=== PATIENT | male | born 1985 | race Caucasian/White ===

== ENCOUNTER 2020-01-15 07:16 | Emergency (ER) | payer OTHER ==
[~2020-01-15] VITALS: Ht 185.4 cm; Wt 79.4 kg
[2020-01-15] MEDS ORDERED: SUBOXONE 4 MG-1 EACH (07:27)
[2020-01-15 07:36] LABS: ABSOLUTE BASOPHILS 0.1 thou/uL (0.0-0.2); ABSOLUTE EOSINOPHILS 0.2 thou/uL (0.0-0.7); ABSOLUTE LYMPHOCYTES 5.5 thou/uL (0.8-5.3); ABSOLUTE NEUTROPHILS 6.6 thou/uL (1.6-8.1); BASOPHILS 0.7 %; EOSINOPHILS 1.8 %; HEMATOCRIT 46.7 % (42.0-52.0); HEMOGLOBIN 15.9 gm/dL (14.0-18.0); LYMPHOCYTES 40.8 %; MCH 29.9 pg (26.0-34.0); MCV 88.1 fL (80.0-100.0); MONOCYTES 7.3 %; MPV 9.1 fl. (7.2-11.1); NUCLEATED RBCS 0 /100WBC; PLATELET COUNT* 330 thou/uL (150-400); POLYS 49.4 %; RDW-CV 14.9 % (10.5-14.5); WBC 13.4 thou/uL (4.0-11.0)
[2020-01-15 07:47] LABS: CALCIUM 8.5 mg/dL (8.5-10.1); CREATININE 1.1 mg/dL (0.6-1.3); POTASSIUM 3.9 mmol/L (3.5-5.1)
[2020-01-15 07:48] LABS: APTT 26.4 Seconds (25.0-31.3); INR 0.9; PROTIME 9.7 Seconds (9.20-11.50)
[2020-01-15 07:59] LABS: ALBUMIN 3.7 g/dL (3.4-5.0); CK-MB MASS 0.5 ng/mL (<0.5-3.6); TOTAL BILIRUBIN 0.2 mg/dL (<0.1-1.0)
[2020-01-15 08:43] VITALS: BP 135/92
--- NOTE | 2020-01-15 15:08 | EKG ---
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[place] : 1985 Requested By: Killian Mcintyre Order Number: [id number] MD: Rob Kelly Measurements Intervals [place] Rate: 72 P: 78 OK: 138 QRS: 89 QRSD: 108 T: 70 QT: 416 QTc: 456 Interpretive Statements Sinus rhythm RSR' in V1 or V2, probably normal variant ST elev, probable normal early repol pattern No previous ECG available for comparison Electronically Signed On 01-15-2020 15:08:37 CDT by Rob Kelly [email or web address] <ELECTRONICALLY SIGNED> By: Rob Kelly MD, [facility] 01/15/20 1508 0 0 Rob Kelly MD, [facility] /EPI
== END 2020-01-15 08:46 | disposition home or self-care (01) ==
LOC: M.ERS 07:16
PROVIDERS: Family Medicine
DX: R07.89 Other chest pain (principal)